=== PATIENT | female | born 1990 ===

== ENCOUNTER 2018-01-19 04:24 | Inpatient (IN) | payer OTHER ==
[2018-01-19] MEDS ORDERED: Pantoprazole 40 MG VIAL ONE (06:49)
[2018-01-19] MEDS ORDERED: Famotidine/PF 20 mg/2ml Vial ONE (06:49)
[2018-01-19 07:26] LABS: #Basophils 0.1 thou/uL (0.0-0.2); #Eosinphils 0.2 thou/uL (0.0-0.7); #Lymphocytes 2.7 thou/uL (1.20-3.40); #Monocytes 0.7 thou/uL (0.11-0.59); #Neutrophils 6.4 thou/uL (1.40-6.50); %Basophils 0.8 % (0.0-1.0); %Eosinophils 1.6 % (0.0-10.0); %Lymphocytes 26.9 % (21.0-51.0); %Neutrophils 63.8 % (42.0-75.0); Hemoglobin 14.6 g/dL (12.0-16.0); Mean Corpuscular HGB CONC 32.5 g/dL (32.0-36.0); Mean Corpuscular Hemoglobin 29.6 pg (27.0-31.0); Mean Platelet Volume 7.2 fL (7.4-10.4); Platelet Count 344 thou/uL (130-400); RBC Distribution Width 11.4 % (11.5-14.5); Red Blood Cell (RBC) Count 4.92 mill/uL (4.20-5.40); White Blood Cell (WBC) Count 10.1 thou/uL (4.8-10.8)
[2018-01-19 07:43] LABS: BHCG - Serum Negative (NEGATIVE); Pregs Control Background? CLEAR/WHITE (CLR/WHITE); Pregs Control Bar Appear? YES (CONTROL BAR)
[2018-01-19 07:50] LABS: ALT (SGPT) 10 U/L (8-55); AST (SGOT) 12 U/L (5-34); Albumin 4.1 g/dL (3.5-5.0); Alkaline Phosphatase 87 U/L (40-150); Anion Gap 12 mmol/L (10-20); BUN (Urea Nitrogen) 11 mg/dL (7.0-18.7); Bilirubin, Total 0.2 mg/dL (0.2-1.2); Calc. Creatinine Clearance 0 mL/min (70-130); Calcium 9.7 mg/dL (7.8-10.44); Carbon Dioxide 25 mmol/L (22-29); Chloride 101 mmol/L (98-107); Estimated GFR-MDRD Greater than 90; Globulin 3.6 g/dL (2.4-3.5); Glucose 87 mg/dL (70-105); Lipase 28 U/L (8-78); Potassium 3.7 mmol/L (3.5-5.1); Protein, Total 7.7 g/dL (6.0-8.3); Sodium 134 mmol/L (136-145)
[2018-01-19] MEDS ORDERED: Piperacillin/Tazobactam 4.5 GM VIAL ONE (08:19)
[2018-01-19 08:36] LABS: HBCM Index 0.15 S/CO (0-0.79); HBSAg Index 0.23 S/CO (0-0.99); Hep A IgM AB Non-Reactive (NonReactive); Hep A IgM S/CO 0.11 S/CO (0-0.79); Hep B Surf Ag Non-Reactive S/CO (NonReactive); Hep C IgG Ab Non-Reactive (NonReactive); Hep C Index 0.04 S/CO (0-0.79); Hepatitis B Core IgM Abs Non-Reactive (NonReactive)
--- NOTE | 2018-01-19 09:01 | ULT ---
PRELIMINARY REPORT/[facility]/EMERGENTY AFTER-HOURS PROCEDURE US Abdomen Limited, Right Upper Quadrant EXAM DATE/TIME: 01/19/2018 6:30 AM CLINICAL HISTORY: 27 years old, female; Pain; Other: Ruq pain TECHNIQUE: Real-time ultrasound of the abdomen with image documentation. Examination was focused on the right up per quadrant. COMPARISON: No relevant prior studies available. FINDINGS: Liver: Unremarkable liver, no focal abnormality. Gallbladder: No definite cholelithiasis/shadowing gallstones. Moderate gallbladder wall thickening, measuring up to 5 x 6 mm. Suspect minimal gallbladder wall rita a/pericholecystic fluid. The gallbladder is mildly distended, transverse diameter of 4.2 cm. Technologist states patient is tender over the gallbladder region during scanning. Common bile duct: No biliary dilation, common duct measures 4.7 mm. Pancreas: Visible pancreas unremarkable. Some of the pancreas is obscured by bowel gas. Right kidney: Images of the right kidney show no hydronephrosis. IMPRESSION: 1. No definite cholelithiasis. 2. Mild gallbladder distention. 3. Moderate gallbladder thickening/edema, see above discussion. 4. No biliary tree dilation. 5. Other findings discussed above. Thank you for allowing us to participate in the care of your patient. Dictated and Authenticated by: Gerhard Pillai MD 01/19/2018 7:31 AM Central Time ([place] & [place]) FINAL REPORT GALLBLADDER ULTRASOUND: HISTORY: Right upper quadrant pain. FINDINGS: Real-time imaging of the right upper quadrant was performed. This shows a mildly distended gallbladd er. Gallbladder wall appears slightly thickened and a suggestion of some edema change within the wal l. I do not see any signs of gallstones. The technologist reports a positive ultrasound Henry's si gn. Visualized liver parenchyma shows no focal findings. The common duct is 5 mm. The right kidney is n ot obstructed. The pancreas is partially obscured. IMPRESSION: 1. Mildly distended gallbladder with a suggestion of some gallbladder wall thickening and a suggesti on of some mild edema change within the gallbladder wall. There is also a positive ultrasound Henry 's sign. The possibility of an acalculus cholecystitis should be considered. Hepatobiliary scan may give some additional information. 2. This report is in agreement with the temporary report issued by [id number]. POS: [facility]
[2018-01-19] MEDS ORDERED: Ondansetron PF 4 MG/2 ML Vial IVP PRN (10:45)
[2018-01-19] MEDS ORDERED: Morphine 2 MG/ML SYRINGE SLOW IVP PRN (10:55)
[2018-01-19] MEDS: D5 1/2 NS w/20 mEq KCL 1,000 ML IV SCH ×3 (12:05→23:17)
[2018-01-19 12:08] VITALS: BMI 39.9
[2018-01-19] MEDS ORDERED: Acetaminophen 325 MG TAB PO PRN (12:15)
--- NOTE | 2018-01-19 12:15 | HP ---
DATE OF ADMISSION: 01/19/2018 CHIEF COMPLAINT: Right upper quadrant abdominal pain. HISTORY: This is a 27-year-old female who has been to the emergency room 7 times in the last 2 month s for right upper quadrant pain radiating to the back, associated with nausea, worse after eating. U ltrasounds were all normal prior. She was treated with ranitidine. This time, she reports some low- grade fever and ultrasound showed some wall thickening, a positive sonographic Henry's sign. PAST MEDICAL HISTORY: Morbid obesity. PAST SURGICAL HISTORY: None. MEDICATIONS: Ranitidine, tramadol. ALLERGIES: ERYTHROMYCIN. SOCIAL HISTORY: She is single, unemployed, smokes one-third pack per day. No alcohol. FAMILY HISTORY: Diabetes, skin cancer, lymphoma and hypertension. PHYSICAL EXAMINATION: VITAL SIGNS: She is afebrile, pulse 90, blood pressure 124/98. GENERAL: Morbidly obese female, in minimal distress. HEENT: No jaundice. LUNGS: Clear. HEART: Regular rate and rhythm. ABDOMEN: Obese, soft, mildly tender to deep palpation in the right upper quadrant. EXTREMITIES: Unremarkable. LABORATORY AND X-RAY FINDINGS: White count 10, H and H 14 and 44, platelet count 344,000. Electroly rob unremarkable. Liver function tests normal. Ultrasound showed no definite stones, distended gall bladder, thickening of the wall, sonographic Henry's sign. ASSESSMENT: Possible acalculous cholecystitis. PLAN: Admit, HIDA scan, laparoscopic cholecystectomy.
[2018-01-19] MEDS ORDERED: Acetaminophen 1,000 MG in Premix Bag 1 BAG IVPB PRN (18:27)
[2018-01-20] MEDS: Pantoprazole 40 MG VIAL IVP SCH (08:02)
[2018-01-20] MEDS ORDERED: Morphine 2 MG/ML SYRINGE SLOW IVP SCH (11:00)
[2018-01-20] MEDS: D5 1/2 NS w/20 mEq KCL 1,000 ML IV SCH ×2 (11:31→23:06)
[2018-01-20] MEDS ORDERED: cefOXitin 2 GM VIAL ONE (11:45)
[2018-01-20] MEDS ORDERED: Sodium Chloride 0.9% 100 ML ONE (11:45)
[2018-01-20] MEDS ORDERED: Bupivacaine/Epinephrine 0.25% 30 ML VIAL ONE (12:02)
[2018-01-20] MEDS ORDERED: Fentanyl 250 MCG/5 ML VIAL ONE (12:05)
[2018-01-20] MEDS ORDERED: Midazolam HCl 2 mg/2 ml Vial ONE (12:12)
[2018-01-20] MEDS ORDERED: Promethazine HCl 25 MG/ML VIAL IM PRN (13:16)
[2018-01-20] MEDS ORDERED: Dextrose 5% in Water 1,000 ML IV PRN (13:16)
[2018-01-20] MEDS ORDERED: Ondansetron PF 4 MG/2 ML Vial IVP PRN (13:16)
[2018-01-20] MEDS ORDERED: hydrALAZINE 20 MG/ML VIAL SLOW IVP PRN (13:16)
[2018-01-20] MEDS ORDERED: Dextrose 50% Abboject 50 ML SYRINGE SLOW IVP PRN (13:16)
[2018-01-20] MEDS ORDERED: Mag-Al 1200 mg/1200 mg/30 ML UDCUP PO PRN (13:16)
[2018-01-20] MEDS ORDERED: Calcium Carbonate 500 MG ChewTAB PO PRN (13:16)
[2018-01-20] MEDS ORDERED: HYDROcodone/Acetaminophen 10/325 mg Tablet PO PRN (13:16)
--- NOTE | 2018-01-20 13:20 | NM ---
HEPATOBILIARY SCAN: HISTORY: Right upper quadrant pain. RADIOPHARMACEUTICAL: 5.5 mCi Technetium 99m-mebrofenin injected intravenously. FINDINGS: There is good tracer uptake by the liver and prompt excretion of the biliary tract and small bowel lo ops. No filling of the gallbladder is seen on the initial images. Two milligrams of IV morphine w ere administered along with additional 2 mCi of Technetium 99m-mebrofenin and additional imaging perf ormed for 30 minutes. The gallbladder is not visualized on the post-morphine augmented images. IMPRESSION: Findings are consistent with cystic duct obstruction/acute cholecystitis. Discussed over the telephone with Dr. Ramon Doe at 11:45 a.m. DEB GARCIA POS: [facility]
[2018-01-20] MEDS ORDERED: Morphine 2 MG/ML SYRINGE SLOW IVP PRN (13:30)
[2018-01-20] MEDS ORDERED: hydrALAZINE 20 MG/ML VIAL ONE (13:33)
[2018-01-20] MEDS ORDERED: Fentanyl 100 MCG/2 ML VIAL ONE (13:47)
--- NOTE | 2018-01-20 14:01 | OP ---
DATE OF PROCEDURE: 01/20/2018 PREOPERATIVE DIAGNOSIS: Acalculous cholecystitis. SURGEON: Ramon Doe M.D. PROCEDURE PERFORMED: Laparoscopic cholecystectomy. INDICATIONS: The patient is a 27-year-old female who has been in the emergency room 7 times for righ t upper quadrant pain, nausea, worse after eating. She has had ultrasounds that were unremarkable. CT unremarkable. Most recent, however, did not show any stones, but a distended gallbladder, thicken ed wall and a sonographic Henry's. She had a HIDA scan that showed nonvisualization of the gallblad magdiel. FINDINGS: She had acute cholecystitis, thickened gallbladder wall with hydrops of the gallbladder. PROCEDURE IN DETAIL: After informed consent was obtained, the patient was taken to the operating seema m and given general endotracheal anesthesia. She was placed in the supine position. Her abdomen was prepped and draped in usual fashion. Local anesthesia infiltrated subcutaneously and deep subumbili maite incision was performed. The subcu divided sharply. The fascia grasped and two stay sutures of 0 Vicryl placed to either side of midline. Midline incised. Digital palpation revealed no local adhe sions. A blunt 10/12 mm trocar inserted. Pneumoperitoneum was created to a pressure of 15 mmHg. A zero-degree laparoscope inserted and under direct vision, three 5-mm ports were placed subcostally. Gallbladder grasped and advanced superiorly. The gallbladder was distended and had to be aspirated 1 20 mL of clear fluid removed from the gallbladder. This was sent for culture and sensitivity. Gallb ladder grasped and advanced superiorly. The peritoneum was lysed distally to expose the cystic duct, cystic artery and critical view. The gallbladder was removed from its fossa utilizing electrocauter y, removed from the abdomen through the umbilical port in an Endosac, sent to pathology for further a nalysis. Hemostasis was achieved with electrocautery. The wound was thoroughly irrigated. Irrigati on fluid removed. The abdomen decompressed. Trocars and retractors removed. The fascia closed with interrupted 0 Vicryl suture. The skin closed with interrupted 4-0 Rapide. Dermabond applied. The patient tolerated the procedure well and was transferred to recovery in good condition. Sponge and n eedle count verified correct x2.
[2018-01-20] MEDS ORDERED: PROPOFOL 200 MG/20 ML VIAL ONE (14:39)
[2018-01-20] MEDS ORDERED: Dexamethasone 20 MG/5 ML VIAL ONE (14:39)
[2018-01-20] MEDS ORDERED: Succinylcholine Chloride 20 MG/ML 10 ml SYRINGE FS ONE (14:39)
[2018-01-20] MEDS ORDERED: Glycopyrrolate 0.2 MG/ML 5 ML SYRINGE ONE (14:39)
[2018-01-20] MEDS ORDERED: Ondansetron PF 4 MG/2 ML Vial ONE (14:39)
[2018-01-20] MEDS ORDERED: Ketorolac Tromethamine 30 MG/ML VIAL ONE (14:39)
[2018-01-20] MEDS ORDERED: Lidocaine 1% PF 5 ML VIAL ONE (14:39)
[2018-01-20] MEDS: Piperacillin/Tazobactam 3.375 GM in Sodium Chloride 0.9% 100 ML IVPB SCH ×2 (14:49→20:11)
[2018-01-20] MEDS: Famotidine 20 MG TAB PO SCH (20:12)
[2018-01-20] MEDS: HYDROcodone/Acetaminophen 10/325 mg Tablet PO PRN (22:41)
[2018-01-20] MEDS: Famotidine/PF 20 mg/2ml Vial SLOW IVP SCH (23:07)
[2018-01-21] MEDS: Piperacillin/Tazobactam 3.375 GM in Sodium Chloride 0.9% 100 ML IVPB SCH ×3 (02:00→15:38)
[2018-01-21] MEDS: D5 1/2 NS w/20 mEq KCL 1,000 ML IV SCH ×2 (06:33→09:11)
[2018-01-21 08:51] LABS: #Lymphocytes 1.2 thou/uL (1.20-3.40); #Monocytes 0.7 thou/uL (0.11-0.59); #Neutrophils 17.7 thou/uL (1.40-6.50); %Basophils 0.1 % (0.0-1.0); %Eosinophils 0.1 % (0.0-10.0); %Monocytes 3.8 % (0.0-10.0); %Neutrophils 89.9 % (42.0-75.0); Hemoglobin 12.7 g/dL (12.0-16.0); Mean Corpuscular HGB CONC 33.2 g/dL (32.0-36.0); Mean Corpuscular Hemoglobin 30.2 pg (27.0-31.0); Mean Corpuscular Volume 91.1 fL (78.0-98.0); Mean Platelet Volume 7.4 fL (7.4-10.4); Platelet Count 306 thou/uL (130-400); RBC Distribution Width 11.3 % (11.5-14.5); White Blood Cell (WBC) Count 19.7 thou/uL (4.8-10.8)
[2018-01-21] MEDS ORDERED: Enoxaparin Sodium 40 MG/0.4 ML SYRINGE SC SCH (09:00)
[2018-01-21] MEDS ORDERED: Sodium Chloride 0.9% 1,000 ML IV SCH (09:15)
--- NOTE | 2018-01-21 09:27 | PRG ---
DATE OF SERVICE: 01/21/2018 SUBJECTIVE: The patient says she feels better, minimal pain. No nausea or vomiting. She is thirsty . OBJECTIVE: VITAL SIGNS: On examination, her heart rate is 109, but evidently she did not get any IV fluids nor did she get any oral diet. Her temperature is 98.6, blood pressure 121/65. GENERAL: She looks good. The incisions are healing well. There is no evidence of infection. LABORATORY DATA: Her white count is 19.7, H&H of 12 and 38, platelet count 306. ASSESSMENT: Volume depletion. PLAN: We will give her saline bolus, start her on a diet. Continue IV antibiotics. Cultures are ne gative so far.
[2018-01-21 09:33] LABS: ALT (SGPT) 19 U/L (8-55); AST (SGOT) 20 U/L (5-34); Albumin 3.3 g/dL (3.5-5.0); Alkaline Phosphatase 69 U/L (40-150); Anion Gap 8 mmol/L (10-20); BUN (Urea Nitrogen) 6 mg/dL (7.0-18.7); Bilirubin, Total 0.2 mg/dL (0.2-1.2); Calc. Creatinine Clearance 205 mL/min (70-130); Calcium 9.1 mg/dL (7.8-10.44); Carbon Dioxide 24 mmol/L (22-29); Chloride 107 mmol/L (98-107); Estimated GFR-MDRD Greater than 90; Globulin 2.9 g/dL (2.4-3.5); Glucose 155 mg/dL (70-105); Lipase 16 U/L (8-78); Potassium 4.2 mmol/L (3.5-5.1); Protein, Total 6.2 g/dL (6.0-8.3); Sodium 135 mmol/L (136-145)
[2018-01-21] MEDS: HYDROcodone/Acetaminophen 10/325 mg Tablet PO PRN (10:14)
[2018-01-21] MEDS: Famotidine 20 MG TAB PO SCH (10:15)
[2018-01-21] MEDS: Pantoprazole 40 MG VIAL IVP SCH (10:15)
[2018-01-21] MEDS: Famotidine/PF 20 mg/2ml Vial SLOW IVP SCH (10:15)
[2018-01-21] MEDS ORDERED: HYDROcodone/Acetaminophen 10/325 mg Tablet PO PRN ×2 (14:43)
[2018-01-21 15:32] VITALS: BP 116/55; TEMP 98
--- NOTE | 2018-01-22 00:45 | DIS ---
DISCHARGE DIAGNOSIS: Acute cholecystitis. PROCEDURES DURING ADMISSION: HIDA scan, laparoscopic cholecystectomy. HOSPITAL COURSE: Patient was admitted. HIDA scan showed nonvisualization of the gallbladder. She w as taken to the operating room, where she underwent laparoscopic cholecystectomy. She was found to h ave acute cholecystitis. Postoperatively, she has done well. She is tolerating liquids well. Pain controlled on p.o. meds. She is discharged home on hydrocodone and Zofran. She will follow up with me in 2 weeks.
== END 2018-01-21 16:10 | disposition home or self-care (01) | DRG 419 ==
LOC: ERS 04:24 → SURG A 11:22 → OBSVTOIN 01-20 13:16
PROVIDERS: ADMIT Surgery; ATTEND Surgery
PROC: 0FT44ZZ Resection of Gallbladder, Percutaneous Endoscopic Approach (ICD-10-PCS; principal; 2018-01-20)
DX: K81.0 Acute cholecystitis (principal); E66.01 Morbid (severe) obesity due to excess calories; Z68.39 Body mass index [BMI] 39.0-39.9, adult; Z79.899 Other long term (current) drug therapy
CPT/HCPCS: 36415; 76705; 78227; 80053; 80074; 83690; 84703; 85025; 87070; 87205; 88304; 94640; 96361; 96365; 96375; A9537; C9113; J0360; J0694; J1100; J1885; J2001; J2250; J2270; J2405; J2543; J2704; J3010; J7050; J7620; S0028